=== PATIENT | male | born 1990 | race American Indian/Alaskan Native ===

== ENCOUNTER 2018-12-26 23:27 | Emergency (ER) | payer OTHER ==
--- NOTE | 2018-12-27 00:24 | XRay Report ---
PROCEDURE: XR ANKLE 2V LT TECHNIQUE: Left ankle radiographs, AP and lateral views. HISTORY: left ankle pain and swelling COMPARISONS: None . FINDINGS: Fracture (s) and/or Dislocation(s): There is a curvilinear density dorsal to the navicular bone whic h could be a cortical avulsion fracture. This could be old. Remainder of the bony structures are inta ct. . Alignment: Normal . Joint space(s): Normal . Soft tissues: Normal . Bone mineralization: Normal . Foreign bodies: None . Calcaneal spurring: None . IMPRESSION: There is a curvilinear density dorsal to the navicular bone which could be a cortical avulsion fractu re. This could be old. Remainder of the bony structures are intact. . There is no joint dislocation.. This document is electronically signed by Thanh Culp MD., Dec 27 2018 12:22:15 AM ET
[2018-12-27] MEDS ORDERED: NORCO 5/325 PO ONE (01:17)
--- NOTE | 2018-12-27 01:26 | Emergency Department Report ---
ED Lower Extremity HPI - General Chief Complaint: Extremity Injury, Lower Stated Complaint: LEFT ANKLE PAIN Time Seen by Provider: 12/27/18 01:01 Source: patient, EMS Mode of arrival: Wheelchair Limitations: Physical Limitation - History of Present Illness Initial Comments: ` Patient is a 28-year-old -Citizen Of The [place] male who presents with left foot and ankle pain status post twisting fall work patient states he caught his foot on a power kal and felt a snap crackle and pop on his left ankle now complains of 6/10 pain to left ankle and foot pt is non weight bearing due to pain there is no open wound , no deformity MD Complaint: foot injury Onset/Timin -: hour(s) Injury: Ankle: Left, Foot: Left Type of Injury: hyperextension Place: work Severity: moderate Severity scale (0 -10): 6 Improves With: nothing Worsens With: weight bearing, movement, palpation Context: fall Associated Symptoms: swelling, tingling, unable to bear weight - Related Data Previous Rx's Medication Instructions Recorded Last Taken Type Amoxicillin [Amoxicillin TAB] 875 mg PO BID #20 tablet 07/15/16 Unknown Rx Ibuprofen [Motrin 800 MG tab] 800 mg PO Q8HR PRN #30 tablet 07/15/16 Unknown Rx Acetaminophen/Codeine [Tylenol 1 tab PO Q6H PRN #12 tab 12/27/18 Unknown Rx /Codeine # 3 tab] Allergies Allergy/AdvReac Type Severity Reaction Status Date / Time No Known Allergies Allergy Verified 07/15/16 03:55 ED Review of Systems ROS: Stated complaint: LEFT ANKLE PAIN Other details as noted in HPI Constitutional: denies: chills, fever Eyes: denies: eye pain, eye discharge, vision change ENT: denies: ear pain, throat pain Respiratory: denies: cough, shortness of breath, wheezing Cardiovascular: denies: chest pain, palpitations Endocrine: no symptoms reported Gastrointestinal: denies: abdominal pain, nausea, diarrhea Genitourinary: denies: urgency, dysuria Musculoskeletal: joint swelling (left ankle swelling pain ). denies: back pain Skin: denies: rash, lesions Neurological: denies: headache, weakness, paresthesias Psychiatric: denies: anxiety, depression Hematological/Lymphatic: denies: easy bleeding, easy bruising ED Past Medical Hx - Social History Smoking Status: Heavy Tobacco Smoker Substance Use Type: Alcohol - Medications Home Medications: Home Medications Medication Instructions Recorded Confirmed Last Taken Type Amoxicillin [Amoxicillin TAB] 875 mg PO BID #20 tablet 07/15/16 Unknown Rx Ibuprofen [Motrin 800 MG tab] 800 mg PO Q8HR PRN #30 tablet 07/15/16 Unknown Rx Acetaminophen/Codeine [Tylenol 1 tab PO Q6H PRN #12 tab 12/27/18 Unknown Rx /Codeine # 3 tab] ED Physical Exam - General Limitations: Physical Limitation General appearance: alert, in no apparent distress - Head Head exam: Present: atraumatic, normocephalic - Eye Eye exam: Present: normal appearance, PERRL, EOMI Pupils: Present: normal accommodation - ENT ENT exam: Present: mucous membranes moist - Neck Neck exam: Present: normal inspection, full ROM. Absent: tenderness - Respiratory Respiratory exam: Present: normal lung sounds bilaterally. Absent: respiratory distress, wheezes, stridor, chest wall tenderness - Cardiovascular Cardiovascular Exam: Present: regular rate, normal rhythm, normal heart sounds. Absent: systolic murmur, diastolic murmur, rubs, gallop - GI/Abdominal GI/Abdominal exam: Present: soft, normal bowel sounds - Rectal Rectal exam: Present: deferred (no) - Extremities Exam Extremities exam: Present: tenderness, joint swelling (left lateral ankle foot ). Absent: pedal edema, calf tenderness - Expanded Lower Extremity Exam Left Ankle exam: Present: tenderness, swelling. Absent: abrasion, laceration, ecchymosis, deformity, crepidus, dislocation, erythema, anterior draw sign Foot/Toe exam: Present: tenderness, swelling. Absent: abrasion, laceration, ecchymosis, deformity, crepidus, dislocation, erythema, amputation, puncture wound, foreign body, calcaneal tenderness, tenderness at base of 5th metatarsal, subungual hematoma Neuro vascular tendon exam: Absent: pulse deficit, motor deficit, sensory deficit, tendon deficit Gait: Positive: observed and limited by pain - Back Exam Back exam: Present: normal inspection, full ROM. Absent: tenderness, CVA tenderness (R), CVA tenderness (L), muscle spasm, paraspinal tenderness, vertebral tenderness, rash noted - Neurological Exam Neurological exam: Present: alert, oriented X3, CN II-XII intact, abnormal gait (unable to bear weight ), reflexes normal. Absent: motor sensory deficit - Expanded Neurological Exam Expanded Patient oriented to: Present: person, place, time Speech: Present: fluid speech Cranial nerves: EOM's Intact: Normal, Gag Reflex: Normal, Nystagmus: Normal, Facial Sensation: Normal Motor strength exam: RLE: 5, LLE: 5 DTR: ankle (R): 2+, ankle (L): 2+ Best Eye Response (Pavithra): (4) open spontaneously Best Motor Response (Pavithra): (6) obeys commands Best Verbal Response (Pavithra): (5) oriented Pavithra Total: 15 - Psychiatric Psychiatric exam: Present: normal affect, normal mood - Skin Skin exam: Present: warm, dry, intact, normal color. Absent: rash ED Lower Extremity MDM - Radiology Data Radiology results: report reviewed, image reviewed Ordering Physician: HAM DE LA GARZA MD Date of Service: 12/26/18 Procedure(s): XR ankle 2V LT Accession Number(s): [id number] cc: HAM DE LA GARZA MD Fluoro Time In Minutes: PROCEDURE: XR ANKLE 2V LT TECHNIQUE: Left ankle radiographs, AP and lateral views. HISTORY: left ankle pain and swelling COMPARISONS: None . FINDINGS: Fracture (s) and/or Dislocation(s): There is a curvilinear density dorsal to the navicular bone which could be a cortical avulsion fracture. This could be old. Remainder of the bony structures are intact. . Alignment: Normal . Joint space(s): Normal . Soft tissues: Normal . Bone mineralization: Normal . Foreign bodies: None . Calcaneal spurring: None . IMPRESSION: There is a curvilinear density dorsal to the navicular bone which could be a cortical avulsion fracture. This could be old. Remainder of the bony structures are intact. . There is no joint dislocation.. This document is electronically signed by Thanh Berry MD., Dec 27 2018 12:22:15 AM ET Transcribed By: CO Dictated By: THANH BERRY MD Electronically Authenticated By: THANH BERRY MD Signed Date/Time: 12/27/18 0024 DD/ 56 TD/TT: 12/26/182356 - Medical Decision Making xray ? curvilinear density dorsal to the navicular bone , there is moderate left lateral akle and foot swelling pt is non weight bearing , there is no open wound distal pulses intact , rom restricted by pain, Neg Aldana's test, plan: posterior short leg splint, crutches will perform splint check prior to discharge, nsaids prn pain follow up with ortho in 2 days return to emergency if symptoms worsen pt verbalized agreement and understanding of discharge plan. Critical care attestation.: If time is entered above; I have spent that time in minutes in the direct care of this critically ill patient, excluding procedure time. ED Disposition Clinical Impression: Closed fracture of foot Qualifiers: Encounter type: initial encounter Laterality: left Qualified Code(s): S92.902A - Unspecified fracture of left foot, initial encounter for closed fracture Disposition: TO HOME OR SELFCARE Is pt being admited?: No Does the pt Need Aspirin: No Condition: Stable Instructions: Foot Fracture in Adults (ED), Crutch Instructions (ED) Prescriptions: Acetaminophen/Codeine [Tylenol /Codeine # 3 tab] 1 tab PO Q6H PRN #12 tab PRN Reason: pain Referrals: JUICE KOCH MD [Staff Physician] - 3-5 Days Forms: Work/School Release Form(ED) Time of Disposition: 01:42
[2018-12-27 02:25] VITALS: BP 125/88
== END 2018-12-27 03:09 | disposition home or self-care (01) ==
LOC: ED 23:27
DX: S92.902A Unspecified fracture of left foot, initial encounter for closed fracture (principal); F17.200 Nicotine dependence, unspecified, uncomplicated; X50.1XXA Overexertion from prolonged static or awkward postures, initial encounter; Y93.89 Activity, other specified; Y92.69 Other specified industrial and construction area as the place of occurrence of the external cause; Y99.0 Civilian activity done for income or pay